=== PATIENT | male | born 1965 | race Caucasian/White ===

== ENCOUNTER 2016-12-25 13:33 | Emergency (ER) | payer SELFPAY ==
[~2016-12-25] VITALS: Wt 72.3 kg
[~2016-12-25 13:33] MED LIST: ASPI325T4 PO; ATOR20TA38 PO; CLOP75TA27 PO; HYDR-3498 PO; HYDR-580 PO; LISI20TA11 PO; NIT4 SL; NITR1PAT3 TD; SAN30GM TOP; SIMV-39 PO
[2016-12-25] MEDS ORDERED: ONDANSETRON 4 MG INJ IV STA ×2 (14:48→19:28)
[2016-12-25] MEDS ORDERED: HYDROmorphONE 1 MG/ML SYG IV STA ×2 (14:48→19:28)
--- NOTE | 2016-12-25 15:56 | RADRPT ---
PROCEDURE: US Lower extremity Venous. CLINICAL INDICATION: Bilateral lower extremity swelling , pain TECHNIQUE: Multiple sonographic images of the bilateral lower extremity deep venous system was obt ained utilizing grayscale, color-flow, compressive sonography and doppler imaging with augmentation. The images were reviewed on a PACS workstation. COMPARISON: 09/29/16 FINDINGS: There is normal compressibility and flow within the bilateral common femoral, superficial femoral , posterior tibial and popliteal veins. RPTAT: AA IMPRESSION: No sonographic evidence for deep venous thrombosis. .Nilson Post MD, MD Date Time Electronically viewed and signed by .Nilson Post MD, on 12/25/2016 15:56 .S/
[2016-12-25 16:20] LABS: ADD SCAN DIFF NO
[2016-12-25 16:22] LABS: BASOPHILS % 0.3 % (0.0-2.0); EOSINOPHILS # 0.1 10^3/ul (0.0-0.5); EOSINOPHILS % 1.5 % (0.0-7.0); HEMATOCRIT 43.8 % (42.0-52.0); HEMOGLOBIN 14.8 g/dl (14.0-18.0); LYMPHOCYTES # 1.5 10^3/ul (0.8-2.9); MEAN CORPUSCULAR HEMOGLOBIN 29.7 pg (29.0-33.0); MEAN CORPUSCULAR HGB CONC 33.8 g/dl (32.0-37.0); MEAN PLATELET VOLUME 10.9 fl (7.4-10.4); MONOCYTE # 0.7 10^3/ul (0.3-0.9); MONOCYTES % 10.3 % (0.0-11.0); NEUTROPHIL # 4.3 10^3/ul (1.6-7.5); NEUTROPHILS % 65.6 % (39.0-77.0); PLATELET COUNT 209 10^3/UL (140-415); RED BLOOD COUNT 4.98 10^6/ul (4.70-6.10); RED CELL DISTRIBUTION WIDTH 13.6 % (11.5-14.5); WHITE BLOOD COUNT 6.6 10^3/ul (4.8-10.8)
[2016-12-25 16:45] LABS: POTASSIUM 3.6 mmol/L (3.5-5.1)
[2016-12-25 16:47] LABS: BILIRUBIN,INDIRECT 0.3 mg/dl (0-1.1); BILIRUBIN,TOTAL 0.3 mg/dl (0.2-1.3); CREATININE 0.73 mg/dl (0.61-1.24)
[2016-12-25 16:48] LABS: ALBUMIN/GLOBULIN RATIO 1.25; CALCIUM 9.7 mg/dl (8.4-10.2); TOTAL PROTEIN 7.2 g/dl (6.1-8.1)
[2016-12-25 18:20] VITALS: TEMP 98
--- NOTE | 2016-12-25 19:05 | RADRPT ---
PROCEDURE: XR Chest. CLINICAL INDICATION: Chest pain. TECHNIQUE: Single frontal view. COMPARISON: 09/27/2016. FINDINGS: The lungs are clear. The heart size is normal. There is calcification in the aorta consistent with atherosclerosis. There is no pleural effusion. There is no pneumothorax. IMPRESSION: 1. Clear lungs. 2. Atherosclerosis. 3. Otherwise normal chest x-ray. RPTAT: QQ .Jarrod Adan MD, MD Date Time Electronically viewed and signed by .Jarrod Adan MD, on 12/25/2016 19:05 .R/
[2016-12-25] MEDS ORDERED: HYDR-902 PO (19:29)
--- NOTE | 2016-12-25 19:35 | ERD ---
ER Documentation Chief Complaint Date/Time DATE: 12/25/16 TIME: 19:32 Chief Complaint non traumatic lower leg swelling for about 1 wk, no cp or sob HPI This is a 51-year-old homeless man who is complaining of bilateral burning leg pain. Patient states he has chronic leg burning pain for the past 6-9 months. The patient thinks he has decreased blood flow to his legs. Says he has chronic off and on swelling to his legs and ankles. He is not short of breath, has no chest pain, no cellulitis in the legs. No abdominal pain vomiting diarrhea. ROS All systems reviewed and are negative except as per history of present illness. Medications Home Meds Active Scripts Hydrocodone/Acetaminophen ([place] 10-325 Tablet) 1 Each Tablet, 1 TAB PO Q6H Y for PAIN, #20 TAB Prov:LEONELA DILLON DO 12/25/16 Hydrocodone Bit-Acetaminophen (Hydrocodone Bit-APAP) 5-325MG Tablet, 1 TAB PO Q6H Y for MODERATE PAIN LEVEL 4-6 for 10 Days, #40 TAB Prov:LIZ SPIVEY MD 10/01/16 Collagenase* (Santyl*) 30 Gm Oint..gm., 1 APPLIC TOP DAILY for 14 Days, TUB Prov:LIZ SPIVEY MD 10/01/16 Hydrocodone Bit-Acetaminophen ([place]) 7.5-325 Mg Tablet, 1 TAB PO Q6H Y for PAIN for 10 Days, TAB Prov:MONICA SHANE NP 10/03/14 Simvastatin* (Simvastatin*) 80 Mg Tablet, 80 MG PO HS for 30 Days, TAB Prov:MONICA SHANE NP 10/03/14 Clopidogrel Bisulfate (Clopidogrel) 75 Mg Tablet, 75 MG PO DAILY for 30 Days, TAB Prov:MONICA SHANE NP 10/03/14 Nitroglycerin* (Nitroglycerin* Patch) 0.1 mg/hr Patch, 1 PATCH TD DAILY for 10 Days, PATCH Prov:MONICA SHANE NP 10/03/14 Nitroglycerin* (Nitrostat*) 25 Tab Subl, 1 TAB SL Q5M Y for CHEST PAIN for 7 Days Prov:MONICA SHANE NP 10/03/14 Aspirin* (Aspirin*) 325 Mg Tablet, 325 MG PO DAILY for 30 Days, TAB Prov:MONICA SHANE NP 10/03/14 Reported Medications Lisinopril* (Lisinopril*) 20 Mg Tablet, 20 MG PO DAILY, #30 TAB 09/27/16 Atorvastatin Calcium* (Atorvastatin Calcium*) 20 Mg Tablet, 20 MG PO QHS, #30 TAB 09/27/16 Allergies Allergies: Coded Allergies: No Known Allergy (Unverified , 09/27/16) PMhx/Soc History of Surgery: Yes (stent placement) Anesthesia Reaction: No Hx Neurological Disorder: No Hx Respiratory Disorders: No Hx Cardiac Disorders: Yes (CAD,HTN) Hx Psychiatric Problems: No Hx Miscellaneous Medical Probl: Yes (CAD, HTN) Hx Alcohol Use: No Hx Substance Use: Yes Hx Tobacco Use: Yes (1 pack/day) Smoking Status: Current every day smoker FmHx Family History: No coronary disease Physical Exam Vitals Vital Signs Date Time Temp Pulse Resp B/P Pulse Ox O2 Delivery O2 Flow Rate FiO2 12/25/16 18:20 98.0 50 15 126/77 100 Room Air 12/25/16 16:23 98.0 65 15 115/93 100 Room Air 12/25/16 13:37 97.7 102 21 132/77 98 Physical Exam Const: Well-developed, well-nourished Head: Atraumatic, normocephalic Eyes: Normal Conjunctiva, PERRLA, EOMI, normal sclera, no nystagmus ENT: Normal External Ears, Nose and Mouth, moist mucus membranes. Neck: Full range of motion. No meningismus, no lymphadenopathy. Resp: Clear to auscultation bilaterally, no wheezing, rhonchi, rales Cardio: Regular rate and rhythm, no murmurs, S1 S2 present Abd: Soft, non tender x 4, non distended. Normal bowel sounds, no guarding or rebound, no pulsitile abdominal masses or bruits Skin: No petechiae or rashes, no ecchymosis , no maculopapular rash Back: No midline or flank tenderness Ext: No cyanosis, or edema, FROM x 4, normal inspection, neurovascularly intact x 4, bounding bilateral dorsalis pedis pulses, subjective hyperesthesia to both lower legs. Warm legs Refill less than 2 Neur: Awake and alert, STR 5/5 x 4, sensation intact x 4, no focal findings, cerebellum intact Psych: Normal Mood and Affect Result Diagram: 2/23/17 1500 12/25/16 1500 Results 24 hrs Laboratory Tests Test 12/25/16 15:00 Alanine Aminotransferase (ALT/SGPT) 36IU/L Albumin 4.0g/dl Albumin/Globulin Ratio 1.25 Alkaline Phosphatase 91IU/L Anion Gap 15 Aspartate Amino Transf (AST/SGOT) 37IU/L B-Type Natriuretic Peptide 93PG/ML Basophils # 0.010^3/ul Basophils % 0.3% Blood Urea Nitrogen 11mg/dl Calcium Level 9.7mg/dl Carbon Dioxide Level 29mmol/L Chloride Level 101mmol/L Creatinine 0.73mg/dl Direct Bilirubin 0.00mg/dl Eosinophils # 0.110^3/ul Eosinophils % 1.5% Globulin 3.20g/dl Glucose Level 120mg/dl Hematocrit 43.8% Hemoglobin 14.8g/dl Indirect Bilirubin 0.3mg/dl Lymphocytes # 1.510^3/ul Lymphocytes % 22.0% Mean Corpuscular Hemoglobin 29.7pg Mean Corpuscular Hemoglobin Concent 33.8g/dl Mean Corpuscular Volume 88.0fl Mean Platelet Volume 10.9fl Monocytes # 0.710^3/ul Monocytes % 10.3% Neutrophils # 4.310^3/ul Neutrophils % 65.6% Nucleated Red Blood Cells # 0.010^3/ul Nucleated Red Blood Cells % 0.0/100WBC Platelet Count 67525^3/UL Potassium Level 3.6mmol/L Red Blood Count 4.9810^6/ul Red Cell Distribution Width 13.6% Sodium Level 141mmol/L Total Bilirubin 0.3mg/dl Total Protein 7.2g/dl White Blood Count 6.610^3/ul Current Medications Medications (Trade) Dose Ordered Sig/Jackie Route PRN Reason Start Time Stop Time Status Last Admin Dose Admin Hydromorphone HCl (Dilaudid) 1 mg ONCE STAT IV 12/25/16 14:48 12/25/16 14:50 DC 12/25/16 16:20 Ondansetron HCl (Zofran Inj) 4 mg ONCE STAT IV 12/25/16 14:48 12/25/16 14:50 DC 12/25/16 16:20 Hydromorphone HCl (Dilaudid) 1 mg ONCE STAT IV 12/25/16 19:28 12/25/16 19:30 DC Ondansetron HCl (Zofran Inj) 4 mg ONCE STAT IV 12/25/16 19:28 12/25/16 19:30 DC Procedures/MDM PROCEDURE: XR Chest. CLINICAL INDICATION: Chest pain. TECHNIQUE: Single frontal view. COMPARISON: 09/27/2016. FINDINGS: The lungs are clear. The heart size is normal. There is calcification in the aorta consistent with atherosclerosis. There is no pleural effusion. There is no pneumothorax. IMPRESSION: 1. Clear lungs. 2. Atherosclerosis. 3. Otherwise normal chest x-ray. RPTAT: QQ .Jarrod Adan MD, Date Time Electronically viewed and signed by .Jarrod Adan MD, on 12/25/2016 19:05 .R/ CC: LEONELA DILLON DO PROCEDURE: US Lower extremity Venous. CLINICAL INDICATION: Bilateral lower extremity swelling , pain TECHNIQUE: Multiple sonographic images of the bilateral lower extremity deep venous system was obtained utilizing grayscale, color-flow, compressive sonography and doppler imaging with augmentation. The images were reviewed on a PACS workstation. COMPARISON: 09/29/16 FINDINGS: There is normal compressibility and flow within the bilateral common femoral, superficial femoral , posterior tibial and popliteal veins. RPTAT: AA IMPRESSION: No sonographic evidence for deep venous thrombosis. .Nilson Post MD, MD Date Time Electronically viewed and signed by .Nilson Post MD, MD on 12/25/2016 15: 56 .S/ CC: LEONELA DILLON DO No acute pathology on chest x-ray or ultrasound of legs or lab work patient has peripheral neuropathy will treat with pain medication Departure Diagnosis: Primary Impression: Peripheral neuropathy Peripheral neuropathy type: polyneuropathy, unspecified Qualified Code: G62.9 - Peripheral polyneuropathy Condition: Stable Patient Instructions: Carlin, LEONELA Garcia DO Dec 25, 2016 19:35
[2016-12-25 20:19] VITALS: BP 111/66; PULSE 66; RESP 18
== END 2016-12-25 21:09 | disposition home or self-care (01) ==
LOC: E/R 13:33
DX: G62.9 Polyneuropathy, unspecified (principal); I25.10 Atherosclerotic heart disease of native coronary artery without angina pectoris; I10 Essential (primary) hypertension; F17.210 Nicotine dependence, cigarettes, uncomplicated; Z79.82 Long term (current) use of aspirin; Z98.61 Coronary angioplasty status
CPT/HCPCS: 36415; 71010; 80053; 83880; 85025; 93923; 96374; 96375; 96376; 99285; J1170; J2405

== ENCOUNTER 2017-05-10 07:04 | Emergency (ER) | payer OTHER ==
[~2017-05-10] VITALS: Ht 165.1 cm; Wt 78.0 kg
[~2017-05-10 07:04] MED LIST changes: +HYDR-902 PO
[2017-05-10 07:07] VITALS: Ht 165.1 cm; Wt 78.0 kg
[2017-05-10] MEDS ORDERED: CLOPIDOGREL 75 MG TAB PO STA (07:25)
[2017-05-10] MEDS ORDERED: ASPIRIN 81 MG TAB PO STA (07:25)
--- NOTE | 2017-05-10 07:31 | ERA ---
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 He states that the pain began in the afternoon and lasted approximately 1 hour. It then improved, but it midnight became worse again. The patient also complains of shortness of breath and bilateral leg pain. Patient has not taken his Plavix or aspirin today. He states his pain is been constant since midnight at this time. ROS All systems reviewed and are negative except as per history of present illness. Medications Home Meds Active Scripts Hydrocodone/Acetaminophen ([place] 10-325 Tablet) 1 Each Tablet, 1 TAB PO Q6H Y for PAIN, #20 TAB Prov:LEONELA DILLON DO 12/25/16 Hydrocodone Bit-Acetaminophen (Hydrocodone Bit-APAP) 5-325MG Tablet, 1 TAB PO Q6H Y for MODERATE PAIN LEVEL 4-6 for 10 Days, #40 TAB Prov:LIZ SPIVEY MD 10/01/16 Collagenase* (Santyl*) 30 Gm Oint..gm., 1 APPLIC TOP DAILY for 14 Days, TUB Prov:LIZ SPIVEY MD 10/01/16 Hydrocodone Bit-Acetaminophen ([place]) 7.5-325 Mg Tablet, 1 TAB PO Q6H Y for PAIN for 10 Days, TAB Prov:MONICA SHANE NP 10/03/14 Simvastatin* (Simvastatin*) 80 Mg Tablet, 80 MG PO HS for 30 Days, TAB Prov:MONICA SHANE NP 10/03/14 Clopidogrel Bisulfate (Clopidogrel) 75 Mg Tablet, 75 MG PO DAILY for 30 Days, TAB Prov:MONICA SHANE NP 10/03/14 Nitroglycerin* (Nitroglycerin* Patch) 0.1 mg/hr Patch, 1 PATCH TD DAILY for 10 Days, PATCH Prov:MONICA SHANE NP 10/03/14 Nitroglycerin* (Nitrostat*) 25 Tab Subl, 1 TAB SL Q5M Y for CHEST PAIN for 7 Days Prov:MONICA SHANE NP 10/03/14 Aspirin* (Aspirin*) 325 Mg Tablet, 325 MG PO DAILY for 30 Days, TAB Prov:MONICA SHANE AU PAIR 10/03/14 Reported Medications Lisinopril* (Lisinopril*) 20 Mg Tablet, 20 MG PO DAILY, #30 TAB 09/27/16 Atorvastatin Calcium* (Atorvastatin Calcium*) 20 Mg Tablet, 20 MG PO QHS, #30 TAB 09/27/16 Allergies Allergies: Coded Allergies: nitroglycerin (Verified Allergy, Unknown, RASH AND BLISTERS, 05/10/17) PMhx/Soc Past medical history: Coronary artery disease, hypertension, peripheral arterial disease Past surgical history: Cardiac stents, peripheral artery bypass in the lower extremities Social history: Smokes tobacco, denies illicit drugs History of Surgery: Yes (stent placement) Anesthesia Reaction: No Hx Neurological Disorder: No Hx Respiratory Disorders: No Hx Cardiac Disorders: Yes (CAD,HTN) Hx Psychiatric Problems: No Hx Miscellaneous Medical Probl: Yes (CAD, HTN) Hx Alcohol Use: No Hx Substance Use: Yes Hx Tobacco Use: Yes (1 pack/day) FmHx Family History: No coronary disease, No diabetes Physical Exam Vitals Vital Signs Date Time Temp Pulse Resp B/P Pulse Ox O2 Delivery O2 Flow Rate FiO2 05/10/17 10:55 98.0 85 18 122/79 99 Room Air 05/10/17 09:00 88 18 122/98 99 Room Air 05/10/17 07:07 98.1 94 18 151/89 99 Physical Exam Const: Alert, appears slightly uncomfortable Head: Atraumatic Eyes: Normal Conjunctiva, no pallor, no icterus ENT: Normal External Ears, Nose and Mouth. Mucous membranes moist Neck: Full range of motion. No JVD Resp: Clear to auscultation bilaterally, no wheezes, no rales Cardio: Regular rate and rhythm, no murmurs Abd: Soft, non tender, non distended. Skin: No petechiae or rashes Back: No midline or flank tenderness Ext: No cyanosis, or edema, 2+ pulses in 4 extremities. Neur: Awake and alert, cranial nerves II through XII intact bilaterally, strength and sensation full in 4 extremities. Psych: Normal Mood and Affect Result Diagram: 05/10/17 0731 05/10/17 0731 Results 24 hrs Laboratory Tests Test 05/10/17 07:31 05/10/17 09:03 White Blood Count 9.210^3/ul Red Blood Count 4.3410^6/ul Hemoglobin 13.5g/dl Hematocrit 38.5% Mean Corpuscular Volume 88.7fl Mean Corpuscular Hemoglobin 31.1pg Mean Corpuscular Hemoglobin Concent 35.1g/dl Red Cell Distribution Width 13.4% Platelet Count 38385^3/UL Mean Platelet Volume 10.6fl Neutrophils % 66.1% Lymphocytes % 20.1% Monocytes % 12.8% Eosinophils % 0.3% Basophils % 0.3% Nucleated Red Blood Cells % 0.0/100WBC Neutrophils # 6.110^3/ul Lymphocytes # 1.810^3/ul Monocytes # 1.210^3/ul Eosinophils # 0.010^3/ul Basophils # 0.010^3/ul Nucleated Red Blood Cells # 0.010^3/ul Prothrombin Time 13.4Sec Prothrombin Time Ratio 1.0 INR International Normalized Ratio 1.02 Sodium Level 135mmol/L Potassium Level 4.4mmol/L Chloride Level 99mmol/L Carbon Dioxide Level 22mmol/L Anion Gap 18 Blood Urea Nitrogen 36mg/dl Creatinine 1.06mg/dl Glucose Level 102mg/dl Calcium Level 9.9mg/dl Total Bilirubin 1.8mg/dl Direct Bilirubin 0.00mg/dl Indirect Bilirubin 1.8mg/dl Aspartate Amino Transf (AST/SGOT) 52IU/L Alanine Aminotransferase (ALT/SGPT) 54IU/L Alkaline Phosphatase 96IU/L Creatine Kinase 857IU/L Troponin I < 0.012ng/ml Total Protein 9.4g/dl Albumin 5.3g/dl Globulin 4.10g/dl Albumin/Globulin Ratio 1.29 Lipase 39U/L Urine Opiates Screen Positive Urine Barbiturates Negative Urine Amphetamines Screen POSITIVE Urine Benzodiazepines Screen Negative Urine Cocaine Screen Negative Urine Cannabinoids Negative Current Medications Medications (Trade) Dose Ordered Sig/Jackie Route PRN Reason Start Time Stop Time Status Last Admin Dose Admin Aspirin (Aspirin) 162 mg ONCE STAT PO 05/10/17 07:25 05/10/17 07:27 DC 05/10/17 07:34 Clopidogrel Bisulfate (plaVIX) 75 mg ONCE STAT PO 05/10/17 07:25 05/10/17 07:27 DC 05/10/17 07:34 Acetaminophen/ Hydrocodone Bitart 1 tab 1 tab ONCE ONCE PO 05/10/17 08:30 05/10/17 08:31 DC 05/10/17 08:08 Sodium Chloride (NS) 1,000 ml @ 1,000 mls/hr Q1H ONCE IV 05/10/17 09:00 05/10/17 09:59 DC 05/10/17 08:59 Procedures/MDM EKG read by me: Time 0731, rate 79 Rhythm: Normal sinus [place]: Normal Intervals: Normal ST-T waves: Nonspecific ST abnormality Ectopy: No Q-waves: Inferior Impression: LVH, no obvious ischemia EKG read by me: Time 1045, rate 85 Rhythm: Normal sinus [place]: Normal Intervals: Normal ST-T waves: no ischemic changes Ectopy: No Q-waves: No Impression: No evidence of ischemia or arrhythmia Time 1050: Reassessment: Patient no longer complaining of chest pain. He is now complaining about blisters on his feet and on his scalp. On exam he has 2 small blisters on plantar surfaces of bilateral feet. There are no ulcers. He has normal capillary refill. His scalp has a mild to moderate amount of seborrhea, but no blisters. The patient acknowledges using methamphetamine after being released from pen[facility]iary 2 days ago. He now appears agitated and is requesting further pain medication. MDM: Patient is a 51-year-old male who presents to the ER with complaint of chest pain that has been constant since midnight. The patient reports a significant cardiac history. His first EKG was nonischemic, and troponin was negative. His chest x-ray is unremarkable. The patient had evidence of dehydration based upon his elevated BUN to creatinine ratio, had a slightly elevated CK consistent with mild rhabdo, and had a positive tox screen for methamphetamine. He made multiple requests for pain medications in the ER. When I reassessed the patient, he had new complaints of foot and head pain. He has no evidence of vascular insufficiency, trauma, or infection to the extremities. His compartments are soft. I advised the patient of my plan to recheck a troponin out of an abundance of caution given the patient's medical history. I believe it is unlikely that he is having coronary ischemia given that he has negative workup in the setting of constant symptoms for more than 10 hours. I suspect that his symptoms may be related to dehydration and mild rhabdomyolysis due to methamphetamine abuse, and I ordered him IV fluids. The patient may also have a component of drug-seeking behavior. The patient refused to wait for further cardiac workup when he was told that he would not receive further narcotic medications, and he signed out AGAINST MEDICAL ADVICE. There are no features to his pain that are concerning for aortic dissection or palmar embolism. Departure Diagnosis: Primary Impression: Chest pain Qualified Code: R07.9 - Chest pain, unspecified type Additional Impressions: Methamphetamine abuse Dehydration, mild Condition: Stable DALI MCFADDEN MD May 10, 2017 07:31
[2017-05-10 07:55] LABS: ADD SCAN DIFF NO
[2017-05-10 07:58] LABS: BASOPHILS % 0.3 % (0.0-2.0); EOSINOPHILS % 0.3 % (0.0-7.0); HEMATOCRIT 38.5 % (42.0-52.0); HEMOGLOBIN 13.5 g/dl (14.0-18.0); LYMPHOCYTES # 1.8 10^3/ul (0.8-2.9); LYMPHOCYTES % 20.1 % (15.0-51.0); MEAN CORPUSCULAR HEMOGLOBIN 31.1 pg (29.0-33.0); MEAN CORPUSCULAR HGB CONC 35.1 g/dl (32.0-37.0); MEAN CORPUSCULAR VOLUME 88.7 fl (82.0-101.0); MEAN PLATELET VOLUME 10.6 fl (7.4-10.4); MONOCYTE # 1.2 10^3/ul (0.3-0.9); MONOCYTES % 12.8 % (0.0-11.0); NEUTROPHIL # 6.1 10^3/ul (1.6-7.5); NEUTROPHILS % 66.1 % (39.0-77.0); PLATELET COUNT 171 10^3/UL (140-415); RED BLOOD COUNT 4.34 10^6/ul (4.70-6.10); RED CELL DISTRIBUTION WIDTH 13.4 % (11.5-14.5); WHITE BLOOD COUNT 9.2 10^3/ul (4.8-10.8)
[2017-05-10 08:16] LABS: INR 1.02; PROTIME 13.4 Sec (12.2-14.2)
[2017-05-10 08:18] LABS: ALANINE AMINOTRANSFERASE 54 IU/L (13-69); ALBUMIN 5.3 g/dl (3.3-4.9); ALBUMIN/GLOBULIN RATIO 1.29; ALKALINE PHOSPHATASE 96 IU/L (42-121); ANION GAP 18 (8-16); ASPARTATE AMINO TRANSFERASE 52 IU/L (15-46); BILIRUBIN,INDIRECT 1.8 mg/dl (0-1.1); BILIRUBIN,TOTAL 1.8 mg/dl (0.2-1.3); BLOOD UREA NITROGEN 36 mg/dl (7-20); CALCIUM 9.9 mg/dl (8.4-10.2); CARBON DIOXIDE 22 mmol/L (21-31); CHLORIDE 99 mmol/L (97-110); CREATININE 1.06 mg/dl (0.61-1.24); GLUCOSE 102 mg/dl (70-220); POTASSIUM 4.4 mmol/L (3.5-5.1); SODIUM 135 mmol/L (135-144); TOTAL PROTEIN 9.4 g/dl (6.1-8.1)
[2017-05-10 08:29] LABS: TROPONIN-I < 0.012 ng/ml (0.00-0.12)
[2017-05-10] MEDS ORDERED: HYDROCODONE/APAP (5/325) TAB PO ONE (08:30)
[2017-05-10] MEDS ORDERED: SOD CHLORIDE 0.9% 1,000 ML IV ONE (09:00)
[2017-05-10 09:18] LABS: CREATINE KINASE 857 IU/L (23-200)
--- NOTE | 2017-05-10 09:41 | RADRPT ---
PROCEDURE: XR Chest. CLINICAL INDICATION: Chest Pain. TECHNIQUE: Single frontal view of the chest was obtained COMPARISON: 12/25/2016 FINDINGS: The heart and mediastinum are within normal limits. The lungs are clear. There is no pleural effusion or pneumothorax. The bones and soft tissue show no acute change. IMPRESSION: No definite abnormalities are identified. RPTAT:AAJJ Physician Ronnie Date Time Electronically viewed and signed by Alexander Lu Physician on 05/10/2017 09:40 /
[2017-05-10 09:48] LABS: OPIATES Positive (NEGATIVE)
[2017-05-10 10:02] LABS: BARBITURATES Negative (NEGATIVE); BENZODIAZEPINES Negative (NEGATIVE); CANNABINOIDS Negative (NEGATIVE); COCAINE Negative (NEGATIVE)
[2017-05-10 10:55] VITALS: BP 122/79; PULSE 85; RESP 18; TEMP 98
== END 2017-05-10 11:00 | disposition left against medical advice (07) ==
LOC: E/R 07:04
DX: R07.2 Precordial pain (principal); I25.10 Atherosclerotic heart disease of native coronary artery without angina pectoris; F15.20 Other stimulant dependence, uncomplicated; E86.0 Dehydration; I10 Essential (primary) hypertension; Z79.82 Long term (current) use of aspirin; Z87.891 Personal history of nicotine dependence; Z98.61 Coronary angioplasty status
CPT/HCPCS: 36415; 71010; 80053; 80307; 82550; 83690; 84484; 85025; 85610; 93005; J7030; Z7502; Z7610

== ENCOUNTER 2017-06-08 16:51 | Emergency (ER) | payer MEDICAID, OTHER ==
[~2017-06-08] VITALS: Ht 167.6 cm; Wt 65.0 kg
[2017-06-08 16:55] VITALS: Ht 167.6 cm; Wt 65.0 kg
[2017-06-09] MEDS ORDERED: TRAM50TA2 PO (09:15)
== END 2017-06-08 19:29 | disposition left against medical advice (07) ==
LOC: FTE 16:51
DX: Z53.21 Procedure and treatment not carried out due to patient leaving prior to being seen by health care provider (principal)

== ENCOUNTER 2017-06-09 08:53 | Emergency (ER) | payer OTHER ==
[~2017-06-09] VITALS: Ht 175.3 cm; Wt 67.0 kg
[2017-06-09 08:55] VITALS: Ht 175.3 cm; Wt 67.0 kg
[2017-06-09] MEDS ORDERED: TRAM50TA2 PO (09:15)
--- NOTE | 2017-06-09 09:28 | ERD ---
ER Documentation Chief Complaint Date/Time DATE: 06/09/17 TIME: 09:26 Chief Complaint bilat leg pain x 1 week needs pain madication HPI Patient is a 51-year-old male with peripheral vascular disease, hypertension, and heart attack who presents with bilateral leg pain. He said that he was told he had peripheral vascular disease and had surgery on his legs in September. He was supposed to see the [facility] but has not seen them as of yet. He said that he ran out of hydrocodone 1 week ago and came here for a medication refill. Upon review of old medical records this is the patient's sixth visit to the ER since 2013 and review of the emergency department information exchange system shows visits to 2 separate emergency departments. He does not currently have a primary doctor or a pain management doctor. ROS All systems reviewed and are negative except as per history of present illness. Medications Home Meds Active Scripts Tramadol HCl (Tramadol HCl) 50 Mg Tablet, 50 MG PO Q4 Y for PAIN, #7 TAB Prov:SUNIL WOMACK MD 06/09/17 Hydrocodone/Acetaminophen ([place] 10-325 Tablet) 1 Each Tablet, 1 TAB PO Q6H Y for PAIN, #20 TAB Prov:LEONELA DILLON DO 12/25/16 Hydrocodone Bit-Acetaminophen (Hydrocodone Bit-APAP) 5-325MG Tablet, 1 TAB PO Q6H Y for MODERATE PAIN LEVEL 4-6 for 10 Days, #40 TAB Prov:LIZ SPIVEY MD 10/01/16 Collagenase* (Santyl*) 30 Gm Oint..gm., 1 APPLIC TOP DAILY for 14 Days, TUB Prov:LIZ SPIVEY MD 10/01/16 Hydrocodone Bit-Acetaminophen ([place]) 7.5-325 Mg Tablet, 1 TAB PO Q6H Y for PAIN for 10 Days, TAB Prov:MONCIA SHANE NP 10/03/14 Simvastatin* (Simvastatin*) 80 Mg Tablet, 80 MG PO HS for 30 Days, TAB Prov:MONICA SHANE NP 10/03/14 Clopidogrel Bisulfate (Clopidogrel) 75 Mg Tablet, 75 MG PO DAILY for 30 Days, TAB Prov:MONICA SHANE NP 10/03/14 Nitroglycerin* (Nitroglycerin* Patch) 0.1 mg/hr Patch, 1 PATCH TD DAILY for 10 Days, PATCH Prov:MONICA SHANE JAI ALAI PLAYER 10/03/14 Nitroglycerin* (Nitrostat*) 25 Tab Subl, 1 TAB SL Q5M Y for CHEST PAIN for 7 Days Prov:MONICA SHANE JAI ALAI PLAYER 10/03/14 Aspirin* (Aspirin*) 325 Mg Tablet, 325 MG PO DAILY for 30 Days, TAB Prov:MONICA SHANE JAI ALAI PLAYER 10/03/14 Reported Medications Lisinopril* (Lisinopril*) 20 Mg Tablet, 20 MG PO DAILY, #30 TAB 09/27/16 Atorvastatin Calcium* (Atorvastatin Calcium*) 20 Mg Tablet, 20 MG PO QHS, #30 TAB 09/27/16 Allergies Allergies: Coded Allergies: nitroglycerin (Verified Allergy, Unknown, RASH AND BLISTERS, 06/09/17) PMhx/Soc History of Surgery: Yes (stent placement X 2 ) Anesthesia Reaction: No Hx Neurological Disorder: No Hx Respiratory Disorders: No Hx Cardiac Disorders: Yes (CAD,HTN) Hx Psychiatric Problems: No Hx Miscellaneous Medical Probl: Yes Hx Alcohol Use: No Hx Substance Use: Yes Hx Tobacco Use: Yes (1/2 pack/day) Smoking Status: Current every day smoker FmHx Family History: No diabetes Physical Exam Vitals Vital Signs Date Time Temp Pulse Resp B/P Pulse Ox O2 Delivery O2 Flow Rate FiO2 06/09/17 08:55 101 18 156/79 98 Physical Exam Const: No acute distress Head: Atraumatic Eyes: Normal Conjunctiva ENT: Normal External Ears, Nose and Mouth. Neck: Full range of motion..~ No meningismus. Resp: Clear to auscultation bilaterally Cardio: Regular rate and rhythm, no murmurs Abd: Soft, non tender, non distended. Normal bowel sounds Skin: No petechiae or rashes Back: No midline or flank tenderness Ext: No cyanosis, or edema, pulses 2+ in the bilateral lower extremities, cap refills less than 2 seconds Neur: Awake and alert Psych: Normal Mood and Affect Procedures/MDM Smoking Cessation Therapy: Pt. was lectured for greater than 3 minutes on the health risks of continued smoking and the benefits of cessation. Patient is a 51-year-old male who presents with acute on chronic bilateral leg pain. I do believe that he has peripheral vascular disease and I informed him to stop smoking. I offered him tramadol and said "that stuff will not work". I told him that per our chronic pain management policy we will not be prescribing him narcotic medicines today or in the future. The patient will need to follow-up with a primary doctor the local clinics which I will give him a list of and I also will give him information for Dr. Renteria for pain management. He can return for any worsening symptoms. At this point I do not see any sign of arterial occlusion. The patient could return for any worsening symptoms. I do believe that there may be an element of pain seeking behavior given his presentation. Departure Diagnosis: Primary Impression: Chronic pain Chronic pain type: other chronic pain Qualified Code: G89.29 - Other chronic pain Additional Impressions: Bilateral leg pain PVD (peripheral vascular disease) Condition: Fair Patient Instructions: Peripheral Vascular Disease Referrals: KAYLA RENTERIA [facility] YOU HAVE RECEIVED A MEDICAL SCREENING EXAM AND THE RESULTS INDICATE THAT YOU DO NOT HAVE A CONDITION THAT REQUIRES URGENT TREATMENT IN THE EMERGENCY DEPARTMENT. FURTHER EVALUATION AND TREATMENT OF YOUR CONDITION CAN WAIT UNTIL YOU ARE SEEN IN YOUR DOCTORS OFFICE WITHIN THE NEXT 1-2 DAYS. IT IS YOUR RESPONSIBILITY TO MAKE AN APPOINTMENT FOR [facility]. IF YOU HAVE A PRIMARY DOCTOR --you should call your primary doctor and schedule an appointment IF YOU DO NOT HAVE A PRIMARY DOCTOR YOU CAN CALL OUR PHYSICIAN REFERRAL HOTLINE AT IF YOU CAN NOT AFFORD TO SEE A PHYSICIAN YOU CAN CHOSE FROM THE FOLLOWING FORMERLY [facility] CLINICS [facility] [address] [facility]. [facility] [address] [facility] [address] [facility] [address] [facility] [address] [facility]. [facility] [address] MD Jun 09, 2017 09:28
== END 2017-06-09 09:38 | disposition left against medical advice (07) ==
LOC: FTE 08:53
DX: G89.29 Other chronic pain (principal); M79.605 Pain in left leg; I73.9 Peripheral vascular disease, unspecified; I10 Essential (primary) hypertension; I25.10 Atherosclerotic heart disease of native coronary artery without angina pectoris; Z98.61 Coronary angioplasty status; Z79.82 Long term (current) use of aspirin
CPT/HCPCS: 99283

== ENCOUNTER 2017-09-13 19:06 | Emergency (ER) | payer OTHER ==
[~2017-09-13] VITALS: Ht 167.6 cm; Wt 70.0 kg
[~2017-09-13 19:06] MED LIST changes: +TRAM50TA2 PO
[2017-09-13 19:11] VITALS: Ht 167.6 cm; Wt 70.0 kg
[2017-09-13] MEDS ORDERED: ASPIRIN 325 MG TAB PO STA (19:19)
[2017-09-13 20:09] LABS: BASOPHILS % 0.3 % (0.0-2.0); EOSINOPHILS # 0.1 10^3/ul (0.0-0.5); EOSINOPHILS % 1.3 % (0.0-7.0); HEMOGLOBIN 14.4 g/dl (14.0-18.0); LYMPHOCYTES # 1.9 10^3/ul (0.8-2.9); LYMPHOCYTES % 27.2 % (15.0-51.0); MEAN CORPUSCULAR HEMOGLOBIN 30.3 pg (29.0-33.0); MEAN CORPUSCULAR HGB CONC 34.3 g/dl (32.0-37.0); MEAN CORPUSCULAR VOLUME 88.4 fl (82.0-101.0); MEAN PLATELET VOLUME 10.7 fl (7.4-10.4); MONOCYTE # 0.6 10^3/ul (0.3-0.9); MONOCYTES % 8.3 % (0.0-11.0); NEUTROPHIL # 4.4 10^3/ul (1.6-7.5); NEUTROPHILS % 62.5 % (39.0-77.0); PLATELET COUNT 212 10^3/UL (140-415); RED BLOOD COUNT 4.75 10^6/ul (4.70-6.10); RED CELL DISTRIBUTION WIDTH 13.5 % (11.5-14.5)
[2017-09-13 20:19] LABS: INR 1.01; PROTIME 13.3 Sec (12.2-14.2)
[2017-09-13 20:20] LABS: PARTIAL THROMBOPLASTIN TIME 28.5 Sec (25.0-35.0)
[2017-09-13 20:27] LABS: ALANINE AMINOTRANSFERASE 34 IU/L (13-69); ALBUMIN 3.8 g/dl (3.3-4.9); ALBUMIN/GLOBULIN RATIO 1.11; ALKALINE PHOSPHATASE 82 IU/L (42-121); ANION GAP 16 (8-16); ASPARTATE AMINO TRANSFERASE 30 IU/L (15-46); BILIRUBIN,INDIRECT 0.5 mg/dl (0-1.1); BILIRUBIN,TOTAL 0.5 mg/dl (0.2-1.3); BLOOD UREA NITROGEN 12 mg/dl (7-20); CALCIUM 8.8 mg/dl (8.4-10.2); CARBON DIOXIDE 23 mmol/L (21-31); CHLORIDE 105 mmol/L (97-110); CREATINE KINASE 33 IU/L (23-200); CREATININE 0.69 mg/dl (0.61-1.24); GLUCOSE 164 mg/dl (70-220); POTASSIUM 3.9 mmol/L (3.5-5.1); SODIUM 140 mmol/L (135-144); TOTAL PROTEIN 7.2 g/dl (6.1-8.1)
[2017-09-13 20:39] LABS: B-TYPE NATRIURETIC PEPTIDE 31 PG/ML (0-125)
--- NOTE | 2017-09-13 20:48 | ERD ---
ER Documentation Chief Complaint Chief Complaint Lt sided pressure CP x 45 mins. HPI This is a 51-year-old male who is brought [facility] emergency department [facility] as he developed a sudden onset of left-sided chest pain that occurred 45 minutes prior to arrival. Contrary to the triage that he states is not a pressure-like sensation but rather a sharp shooting pain to he stated that the pain has been persistent since its onset. He states it is a sharp shooting pain , 4 out of 10 in intensity and exacerbated when he moves his left arm. He denies any recent remote blunt or penetrating chest wall trauma. He has no shortness of breath at rest or exertion. He denies a productive or nonproductive cough. He has had no fevers or shaking or chills. The patient does have a cardiac history with stents placed in April 2016. The patient's medical record for custody seen by their PCP indicated that the patient has a history of manipulative behavior paranoia and meth abuse. The patient takes Plavix 75 mg on a daily basis as well as 81 mg of aspirin ROS All systems reviewed and are negative except as per history of present illness. Medications Home Meds Active Scripts Tramadol HCl (Tramadol HCl) 50 Mg Tablet, 50 MG PO Q4 Y for PAIN, #7 TAB Prov:SUNIL WOMACK MD 06/09/17 Hydrocodone/Acetaminophen ([place] 10-325 Tablet) 1 Each Tablet, 1 TAB PO Q6H Y for PAIN, #20 TAB Prov:LEONELA DILLON DO 12/25/16 Hydrocodone Bit-Acetaminophen (Hydrocodone Bit-APAP) 5-325MG Tablet, 1 TAB PO Q6H Y for MODERATE PAIN LEVEL 4-6 for 10 Days, #40 TAB Prov:LIZ SPIVEY MD 10/01/16 Collagenase* (Santyl*) 30 Gm Oint..gm., 1 APPLIC TOP DAILY for 14 Days, TUB Prov:LIZ SPIVEY MD 10/01/16 Hydrocodone Bit-Acetaminophen ([place]) 7.5-325 Mg Tablet, 1 TAB PO Q6H Y for PAIN for 10 Days, TAB Prov:MONICA SHANE NP 10/03/14 Simvastatin* (Simvastatin*) 80 Mg Tablet, 80 MG PO HS for 30 Days, TAB Prov:MONICA SHANE NP 10/03/14 Clopidogrel Bisulfate (Clopidogrel) 75 Mg Tablet, 75 MG PO DAILY for 30 Days, TAB Prov:MONICA SHANE SLIP BOX CHANGER 10/03/14 Nitroglycerin* (Nitroglycerin* Patch) 0.1 mg/hr Patch, 1 PATCH TD DAILY for 10 Days, PATCH Prov:MONICA SHANE SLIP BOX CHANGER 10/03/14 Nitroglycerin* (Nitrostat*) 25 Tab Subl, 1 TAB SL Q5M Y for CHEST PAIN for 7 Days Prov:MONICA SHANE SLIP BOX CHANGER 10/03/14 Aspirin* (Aspirin*) 325 Mg Tablet, 325 MG PO DAILY for 30 Days, TAB Prov:MONICA SHANE SLIP BOX CHANGER 10/03/14 Reported Medications Lisinopril* (Lisinopril*) 20 Mg Tablet, 20 MG PO DAILY, #30 TAB 09/27/16 Atorvastatin Calcium* (Atorvastatin Calcium*) 20 Mg Tablet, 20 MG PO QHS, #30 TAB 09/27/16 Allergies Allergies: Coded Allergies: nitroglycerin (Verified Allergy, Unknown, RASH AND BLISTERS, 06/09/17) PMhx/Soc History of Surgery: Yes (stent placement X 2 ) Anesthesia Reaction: No Hx Neurological Disorder: No Hx Respiratory Disorders: No Hx Cardiac Disorders: Yes (CAD,HTN) Hx Psychiatric Problems: No Hx Miscellaneous Medical Probl: Yes Hx Alcohol Use: No Hx Substance Use: Yes Hx Tobacco Use: Yes (1/2 pack/day) Physical Exam Vitals Vital Signs Date Time Temp Pulse Resp B/P Pulse Ox O2 Delivery O2 Flow Rate FiO2 09/13/17 20:47 60 16 116/82 99 Room Air 09/13/17 19:11 72 17 143/58 99 09/13/17 19:11 98.6 69 13 122/86 98 Physical Exam Constitutional:Well-developed. Well-nourished. HEENT:Normocephalic. Atraumatic.Pupils were equal round reactive to light. Moist mucous membranes.No tonsillar exudates. Neck: No nuchal rigidity. No lymphadenopathy. No posterior cervical spine tenderness or step-offs. Respiratory: Not using accessory muscles of respiration.Lungs were clear to auscultation bilaterally. No rhonchi. No rales. No wheezing. Cardiovascular: Regular rate regular rhythm.No murmurs. No rubs were appreciated.S1, S2 normal. Distal pulses are palpable 2+ bilaterally. Reducible left sternal chest wall tenderness with no crepitus no ecchymosis no flail chest GI: Abdomen was soft. Nontender. Non Distended. No pulsatile abdominal masses or bruits. No rebound. No guarding. Bowel sounds were present and normal. Muscle skeletal: Full range of motion of both the upper and lower extremities bilaterally.Normal muscle tone.No assymetrical calf tenderness or swelling. Skin: No petechia, no purpura. No lesions on the palms or the soles of the feet. No maculopapular rash. NEURO: Patient was alert, awake, orientated x3.No facial droop. Gait observed and normal with no ataxia.Speech had regular rate and rhythm. No focal neurological deficits. Result Diagram: 09/13/17192409/[id number]/171924 Results 24 hrs Laboratory Tests Test 09/13/17 19:25 White Blood Count 7.010^3/ul Red Blood Count 4.7510^6/ul Hemoglobin 14.4g/dl Hematocrit 42.0% Mean Corpuscular Volume 88.4fl Mean Corpuscular Hemoglobin 30.3pg Mean Corpuscular Hemoglobin Concent 34.3g/dl Red Cell Distribution Width 13.5% Platelet Count 61934^3/UL Mean Platelet Volume 10.7fl Neutrophils % 62.5% Lymphocytes % 27.2% Monocytes % 8.3% Eosinophils % 1.3% Basophils % 0.3% Nucleated Red Blood Cells % 0.0/100WBC Neutrophils # 4.410^3/ul Lymphocytes # 1.910^3/ul Monocytes # 0.610^3/ul Eosinophils # 0.110^3/ul Basophils # 0.010^3/ul Nucleated Red Blood Cells # 0.010^3/ul Prothrombin Time 13.3Sec Prothrombin Time Ratio 1.0 INR International Normalized Ratio 1.01 Activated Partial Thromboplast Time 28.5Sec Sodium Level 140mmol/L Potassium Level 3.9mmol/L Chloride Level 105mmol/L Carbon Dioxide Level 23mmol/L Anion Gap 16 Blood Urea Nitrogen 12mg/dl Creatinine 0.69mg/dl Glucose Level 164mg/dl Calcium Level 8.8mg/dl Total Bilirubin 0.5mg/dl Direct Bilirubin 0.00mg/dl Indirect Bilirubin 0.5mg/dl Aspartate Amino Transf (AST/SGOT) 30IU/L Alanine Aminotransferase (ALT/SGPT) 34IU/L Alkaline Phosphatase 82IU/L Creatine Kinase 33IU/L Creatine Kinase Index Pending Creatinine Kinase MB (Mass) Pending Troponin I Pending B-Type Natriuretic Peptide Pending Total Protein 7.2g/dl Albumin 3.8g/dl Globulin 3.40g/dl Albumin/Globulin Ratio 1.11 Current Medications Medications (Trade) Dose Ordered Sig/Jackie Route PRN Reason Start Time Stop Time Status Last Admin Dose Admin Aspirin (Aspirin) 325 mg ONCE STAT PO 09/13/17 19:19 09/13/17 19:20 DC 09/13/17 19:50 Procedures/MDM The patient presented to the emergency department complaining of chest pain. My clinical evaluation and workup was to distinguish minor causes of chest pain from acute life threatening cardiopulmonary causes such as myocardial infarction , pulmonary embolism, aortic dissection, esophageal rupture, cardiac tamponade, The patient was placed on a quality assurance assistant, continuous pulse oximetry. 12 Lead EKG tracing ordered and reviewed by myself showed: Bradycardia of 59 bpm and no arrhythmia. MS interval normal. QRS duration normal. No ST segment elevation No ST segment depression. No changes consistent with acute ischemia. The patient had reports from [facility] as he been seen September 11, 2017 for similar symptoms. A chest radiograph had been performed and indicated this patient had a small right lung nodule that could represent a granuloma measuring 0.7 cm. There is no infiltrates pneumothorax or pleural effusions therefore did not feel is necessary to repeat a chest radiograph at this time but was instructed for the patient undergo an outpatient CT of the chest to further evaluate the right upper lobe nodule The patients chest pain was reproduced by palpation and horizontal flexion of the arms. It was my clinical impression that the pain was a result of inflammation of the skin and subcutaneous structures of the chest wall versus myocardial ischemia. I felt the patient had low-risk chest pain and could therefore be safely discharged with close follow-up. Departure Diagnosis: Primary Impression: Costochondritis, acute Condition: Fair LUBNA CORDERO Sep 13, 2017 20:48
[2017-09-13 21:03] LABS: CK-MB 0.61 ng/ml (0.0-2.4); TROPONIN-I < 0.012 ng/ml (0.00-0.12)
[2017-09-13 21:58] VITALS: BP 130/81; PULSE 53; RESP 14; TEMP 98
== END 2017-09-13 22:00 | disposition home or self-care (01) ==
LOC: E/R 19:06
DX: M94.0 Chondrocostal junction syndrome [Tietze] (principal); I25.10 Atherosclerotic heart disease of native coronary artery without angina pectoris; I10 Essential (primary) hypertension; F17.210 Nicotine dependence, cigarettes, uncomplicated; R06.02 Shortness of breath; Z79.82 Long term (current) use of aspirin; Z98.61 Coronary angioplasty status
CPT/HCPCS: 80053; 82550; 82553; 83880; 84484; 85025; 85610; 85730; 93005

== ENCOUNTER 2017-11-30 11:52 | Inpatient (IN) | END 2017-12-01 12:45 | DRG 313 ==